=== PATIENT | female | born 1945 | race Caucasian/White ===

== ENCOUNTER 2018-06-08 12:55 | Emergency (ER) | payer MEDICARE, BC ==
--- NOTE | 2018-06-08 13:22 | UC ---
Throat Pain/Nasal Cj HPI - HPI Summary HPI Summary: 72 yo female presents with 1.5 weeks of sinus pain/pressure/congestion. Over the last 2 days has had left ear pain. Has been taking coricidin with no relief. Denies fever, chills, sore throat, cough. - History of Current Complaint Chief Complaint: UCGeneralIllness Stated Complaint: SINUS ISSUE EARS CLOGGED Time Seen by Provider: 06/08/18 13:21 Hx Obtained From: Patient Hx Last Menstrual Period: na Onset/Duration: Gradual Onset Severity: Moderate Pain Intensity: 8 Pain Scale Used: 0-10 Numeric - Allergies/Home Medications Allergies/Adverse Reactions: Allergies Allergy/AdvReac Type Severity Reaction Status Date / Time No Known Allergies Allergy Verified 06/08/18 13:15 Home Medications: Home Medications Aspirin 81 mg PO DAILY WITH MEAL 06/08/18 [History Confirmed 06/08/18] Atorvastatin* [Lipitor*] 20 mg PO 1700 06/08/18 [History Confirmed 06/08/18] Cory/D3/Mag11/Zinc/Greens Tier/Emeterio/Bor [Caltrate 600+D Plus] 1 tab PO DAILY WITH MEAL [History Confirmed 06/08/18] Lisinopril 10 mg PO DAILY WITH MEAL 06/08/18 [History Confirmed 06/08/18] [place]-3 Fatty Acids/Fish Oil [Fish Oil 1,000 mg Capsule] 1 each PO DAILY WITH MEAL 06/08/18 [History Confirmed 06/08/18] Turmeric Root Extract [Turmeric Curcumin] 500 mg PO DAILY WITH MEAL 06/08/18 [ History Confirmed 06/08/18] PMH/Surg Hx/FS Hx/Imm Hx Endocrine History: Dyslipidemia Cardiovascular History: Hypertension - Surgical History Surgical History: Yes Surgery Procedure, Year, and Place: spine 1997 - Family History Known Family History: Positive: Unknown - Social History Occupation: Retired Lives: With Family Alcohol Use: Occasionally Substance Use Type: None Smoking Status (MU): Never Smoked Tobacco Review of Systems All Other Systems Reviewed And Are Negative: Yes Constitutional: Positive: Negative Skin: Positive: Negative Eyes: Positive: Negative ENT: Positive: Ear Ache, Nasal Discharge, Sinus Congestion, Sinus Pain/ Tenderness Respiratory: Positive: Negative Cardiovascular: Positive: Negative Gastrointestinal: Positive: Negative Neurological: Positive: Negative Psychological: Positive: Negative Physical Exam - Summary Physical Exam Summary: GENERAL: NAD. WDWN. No pain distress. SKIN: No rashes, sores, lesions, or open wounds. HEENT: Head: AT/NC Eyes: EOM intact. Conjunctiva clear without inflammation or discharge. Ears: Hearing grossly normal. TMs intact, no bulging, erythema, or edema. Nose: Nasal mucosa mildly swollen and erythematous with yellow discharge. TTP maxillary and frontal sinus. Positive post nasal drip Throat: Posterior oropharynx without exudates, erythema, or tonsillar enlargement. Uvula midline. NECK: Supple. Nontender. No lymphadenopathy. CHEST: CTAB. No r/r/w. No accessory muscle use. Breathing comfortably and in no distress. CV: RRR. Without m/r/g. Pulses intact. NEURO: Alert. PSYCH: Age appropriate behavior. Triage Information Reviewed: Yes Vital Signs: Initial Vital Signs Temp 98.4 F 06/08/18 13:12 Pulse 84 06/08/18 13:12 Resp 18 06/08/18 13:12 BP 142/86 06/08/18 13:12 Pulse Ox 100 06/08/18 13:12 Vital Signs Reviewed: Yes Throat Pain/Nasal Course/Dx - Course Course Of Treatment: Sinusitis - Differential Dx/Diagnosis Provider Diagnosis: Sinusitis Discharge - Sign-Out/Discharge Documenting (check all that apply): Patient Departure All imaging exams completed and their final reports reviewed: No Studies - Discharge Plan Condition: Stable Disposition: HOME Prescriptions: Amoxicillin PO (*) [Amoxicillin 875 MG (*)] 875 mg PO BID #14 tab Fluticasone NASAL SPRAY 50MCG* [Flonase NASAL SPRAY 50MCG*] 2 spray BOTH NARES DAILY #1 btl Patient Education Materials: Sinusitis (ED) Referrals: No Primary Care Phys,NOPCP [Primary Care Provider] - Additional Instructions: If you develop a fever, shortness of breath, chest pain, new or worsening symptoms - please call your PCP or go to the ED. Your blood pressure was high at todays visit. Please see your primary provider within 4 weeks for recheck and re-evaluation. - Billing Disposition and Condition Condition: STABLE Disposition: Home
== END 2018-06-08 13:38 | disposition home or self-care (01) ==
LOC: UCEAST 12:55
DX: J32.9 Chronic sinusitis, unspecified (principal); I10 Essential (primary) hypertension; E78.5 Hyperlipidemia, unspecified; Z79.82 Long term (current) use of aspirin; Z79.899 Other long term (current) drug therapy
CPT/HCPCS: 99202; G0463

== ENCOUNTER 2018-06-12 11:07 | Emergency (ER) | payer MEDICARE, BC ==
[2018-06-12 11:21] VITALS: BP 154/82
--- NOTE | 2018-06-12 11:58 | UC ---
Respiratory Complaint HPI - HPI Summary HPI Summary: 72-year-old woman comes to clinic today with a chief complaint of chest congestion and shortness of breath. Patient's been sick for about 3-1/2 weeks and was seen on 08 June 2018 here when she primarily had sinus and ear infection complaints. She was started on amoxicillin at that time the sinuses have cleared up with the ears still has a pressure primarily the right ear. Since that time she feels like the infection is gone into her chest and she's having chest congestion that she's having a hard time clearing. Laying down makes it worse she feels tired and fatigued. No pedal edema. There is chest tightness. The patient denies any concern of a heart problem at this time. - History of Current Complaint Chief Complaint: UCRespiratory Stated Complaint: COUGH Time Seen by Provider: 06/12/18 11:35 Hx Last Menstrual Period: na Pain Intensity: 2 - Allergies/Home Medications Allergies/Adverse Reactions: Allergies Allergy/AdvReac Type Severity Reaction Status Date / Time No Known Allergies Allergy Verified 06/12/18 11:21 PMH/Surg Hx/FS Hx/Imm Hx Previously Healthy: Yes Endocrine History: Dyslipidemia - Surgical History Surgical History: Yes Surgery Procedure, Year, and Place: spine 1997 - Family History Known Family History: Positive: Unknown - Social History Alcohol Use: Occasionally Substance Use Type: None Smoking Status (MU): Never Smoked Tobacco Review of Systems All Other Systems Reviewed And Are Negative: Yes Constitutional: Positive: Negative Skin: Positive: Negative Eyes: Positive: Negative ENT: Positive: Sore Throat, Ear Ache, Nasal Discharge, Sinus Congestion Respiratory: Positive: Shortness Of Breath, Cough, Other - WHEEZING Cardiovascular: Positive: Negative Gastrointestinal: Positive: Negative Motor: Positive: Negative Neurovascular: Positive: Negative Musculoskeletal: Positive: Negative Neurological: Positive: Negative Psychological: Positive: Negative Is Patient Immunocompromised?: No Physical Exam Triage Information Reviewed: Yes Appearance: No Pain Distress, Well-Nourished, Ill-Appearing - MILD Vital Signs: Initial Vital Signs Temp 99 F 06/12/18 11:17 Pulse 77 06/12/18 11:17 Resp 20 06/12/18 11:17 BP 154/82 06/12/18 11:17 Pulse Ox 100 06/12/18 11:17 Vital Signs Reviewed: Yes Eye Exam: Normal Eyes: Positive: Conjunctiva Clear ENT: Positive: Pharyngeal erythema, Nasal congestion, Nasal drainage, TM bulging - RIGHT, CLEAR FLUID BEHIND THE TM Neck exam: Normal Neck: Positive: Supple Respiratory: Positive: No respiratory distress, No accessory muscle use, Rhonchi , Wheezing Cardiovascular: Positive: RRR Musculoskeletal Exam: Normal Musculoskeletal: Positive: Strength Intact, ROM Intact, No Edema Psychological Exam: Normal Psychological: Positive: Normal Response To Family, Age Appropriate Behavior Skin Exam: Normal UC Diagnostic Evaluation - Laboratory O2 Sat by Pulse Oximetry: 100 Respiratory Course/Dx - Course Course Of Treatment: With the patient having rhonchi and wheezes the plan now is to treat with a broader spectrum antibiotic that will cover bronchitis and pneumonia. Treating with Levaquin 750 mg by mouth daily for 7 days and also starting an albuterol inhaler to be used as needed. We discussed getting a chest x-ray today and decided to treat first and then if she does not improve then reconsider a chest x-ray. Discussed [id number] treatments also. Discussed that if she worsens I would recommend evaluation in the emergency department. - Differential Dx/Diagnosis Provider Diagnosis: Bronchitis, Bronchospasm, Acute serous otitis media of right ear Discharge - Sign-Out/Discharge Documenting (check all that apply): Patient Departure All imaging exams completed and their final reports reviewed: No Studies - Discharge Plan Condition: Stable Disposition: HOME Prescriptions: Albuterol HFA INHALER* [Ventolin HFA Inhaler*] 2 puff INH Q4H PRN #1 mdi PRN Reason: Wheezing Levofloxacin TAB* [Levaquin TAB*] 750 mg PO DAILY #7 tab Patient Education Materials: Acute Bronchitis (ED), Bronchospasm (ED) Referrals: [facility] [Outside] Additional Instructions: FOLLOW UP WITH YOUR DOCTOR. GO TO THE EMERGENCY DEPARTMENT FOR ANY WORSENING OF YOUR CONDITION OR QUESTIONS OR CONCERNS. DRINK PLENTY OF FLUIDS AND TRY SALINE NASAL SPRAY AND STEAM. TRY AN OVER THE COUNTER EXPECTORANT WITH GUAIFENESIN TO THIN SECRETIONS. TRY AN OVER THE COUNTER COUGH SUPPRESSANT WITH DEXTROMETHORAPHAN IF NEEDED. - Billing Disposition and Condition Condition: STABLE Disposition: Home
== END 2018-06-12 12:15 | disposition home or self-care (01) ==
LOC: UCEAST 11:07
DX: J40 Bronchitis, not specified as acute or chronic (principal); J98.01 Acute bronchospasm; H65.01 Acute serous otitis media, right ear
CPT/HCPCS: 99212; G0463